=== PATIENT | female | born 1950 | race African-American/Black ===

== ENCOUNTER 2020-08-29 20:50 | Emergency (ER) | payer MEDICARE, OTHER | END 2020-08-29 22:02 | disposition home or self-care (01) | LOC: CSHERS 20:50 | DX: L03.115 Cellulitis of right lower limb (principal); I10 Essential (primary) hypertension; Z79.82 Long term (current) use of aspirin; Z79.899 Other long term (current) drug therapy; M79.604 Pain in right leg ==